=== PATIENT | female | born 1995 | race Two or more races ===

== ENCOUNTER 2018-02-10 11:19 | Emergency (ER) | payer OTHER ==
[~2018-02-10] VITALS: Ht 162.6 cm; Wt 56.9 kg
[2018-02-10 11:33] VITALS: BP 128/77
[2018-02-10] MEDS ORDERED: ERYTHROMYCIN OPHTH 0.5%, 1GM RIGHTEYE ONE (12:30)
== END 2018-02-10 12:43 | disposition home or self-care (01) ==
LOC: ED 12:40
DX: S05.01XA Injury of conjunctiva and corneal abrasion without foreign body, right eye, initial encounter (principal); X58.XXXA Exposure to other specified factors, initial encounter; Y93.89 Activity, other specified; Y99.8 Other external cause status; Y92.89 Other specified places as the place of occurrence of the external cause
CPT/HCPCS: 99283